=== PATIENT | male | born 1985 | race Caucasian/White ===

== ENCOUNTER 2020-08-30 01:06 | Emergency (ER) | payer BC ==
[~2020-08-30] VITALS: Ht 175.3 cm; Wt 136.1 kg
[2020-08-30 01:10] VITALS: BP_SYST 132
--- NOTE | 2020-08-30 01:10 | NUR ---
Patient to ER bed 3 to gown for evaluation. Side rails up. Report given to KELVIN KENYON.
--- NOTE | 2020-08-30 01:32 | NUR ---
Dr. Ovalles [facility] for pt eval
--- NOTE | 2020-08-30 01:34 | NUR ---
PT BIBA TO ED C/O LEFT SHOULDER PAIN THAT RADIATES DOWN TO THE WRIST GETTING UP AND FEELING DIZZY AND NEAR FAINTING VSS NO S/S OF ACUTE DISTRESS NO OTHER COMPLAINTS NOTED RESTING ON GURNEY RAILS UP
--- NOTE | 2020-08-30 01:42 | NUR ---
Portable X Ray bedside, well tolerated
--- NOTE | 2020-08-30 01:48 | NUR ---
Pt taken to Radiology in stable condition
[2020-08-30] MEDS ORDERED: KETOROLAC TROMETHAMINE 30 MG VIAL IM ONE (02:00)
--- NOTE | 2020-08-30 02:02 | NUR ---
Pt back from Radiology, well tolerated
--- NOTE | 2020-08-30 02:18 | NUR ---
Orthostatics: sitting 133/88, 73 flat 127/74, 71 standing 121/86, 81. Dr. Ovalles aware
--- NOTE | 2020-08-30 02:24 | NUR ---
Dr. Ovalles [facility] for pt follow up
[2020-08-30] MEDS ORDERED: CYCL-10 PO (02:42)
[2020-08-30] MEDS ORDERED: PRED20TA PO (02:42)
[2020-08-30] MEDS ORDERED: ACET1TAB23 PO (02:42)
[2020-08-30 02:55] VITALS: BP_SYST 132
--- NOTE | 2020-08-30 02:55 | NUR ---
Patient given written and verbal discharge instructions and verbalizes understanding. ER MD discussed with patient the results and treatment provided. Patient in stable condition. ID arm band removed. Rx of Flexeril, Tylenol #3, and Prednisone given. Patient educated on pain management and to follow up with PMD. Pain Scale 0/10. Opportunity for questions provided and answered. Medication side effect fact sheet provided.
== END 2020-08-30 02:55 | disposition home or self-care (01) ==
LOC: SED 01:06
DX: M54.12 Radiculopathy, cervical region (principal); Z88.8 Allergy status to other drugs, medicaments and biological substances
CPT/HCPCS: 71045; 72040-TC; 96372; 99284

== ENCOUNTER 2021-05-27 13:00 | Emergency (ER) | payer BC ==
[~2021-05-27] VITALS: Ht 175.3 cm; Wt 131.5 kg
[~2021-05-27 13:00] MED LIST: CYCL10TA24 PO; PRED20TA PO
[2021-05-27 13:08] VITALS: BP_SYST 139
--- NOTE | 2021-05-27 13:08 | NUR ---
Patient to ER bed 3 to gown for evaluation. Side rails up. Assumed care.
--- NOTE | 2021-05-27 13:10 | NUR ---
Pt. came in with concerns of dizzy episodes that have come and gone over the past couple weeks and now for three days has experienced intermittent numbness to left arm and left leg, describes it as "pins and needles," denies pain or ACUÑA.
--- NOTE | 2021-05-27 13:20 | NUR ---
ER at bedside examining patient.
--- NOTE | 2021-05-27 13:28 | NUR ---
Patient transported to radiology via wheelchair, accompanied by staff.
[2021-05-27 13:46] LABS: BASOPHILS % (AUTO) 0.5 % (0.0-2.0); EOSINOPHILS # (AUTO) 0.1 K/uL (0.0-0.4); EOSINOPHILS % (AUTO) 1.6 % (0.0-4.0); HEMATOCRIT 46.9 % (36-54); HEMOGLOBIN 15.8 g/dL (14.0-18.0); LYMPHOCYTES # (AUTO) 1.5 K/uL (1.0-5.5); LYMPHOCYTES % (AUTO) 26.3 % (20.5-51.5); MEAN CORPUSCULAR HEMOGLOBIN 29 pg (27-31); MEAN CORPUSCULAR HGB CONC 34 % (32-36); MEAN CORPUSCULAR VOLUME 86 fL (79.0-98.0); MONOCYTES # (AUTO) 0.4 K/uL (0.0-1.0); MONOCYTES % (AUTO) 7.1 % (1.7-9.3); NEUTROPHILS # (AUTO) 3.8 K/uL (1.8-7.7); NEUTROPHILS % (AUTO) 64.5 % (40.0-70.0); PLATELET COUNT (AUTO) 154 K/uL (130-430); RED BLOOD CELL COUNT(AUTO) 5.47 MIL/uL (4.2-6.2); RED CELL DISTRIBUTION WIDTH 14.2 % (9.0-15.0); WHITE BLOOD COUNT (AUTO) 5.8 K/uL (4.8-10.8)
[2021-05-27 14:22] LABS: ANION GAP 8 (5-15); CALCIUM 8.8 mg/dL (8.4-11.0); CHLORIDE 104 mmol/L (98-107); CREATININE 1.05 mg/dL (0.55-1.30); GLUCOSE 114 mg/dL (70-99); POTASSIUM 3.6 mmol/L (3.5-5.1); SODIUM SERUM 138 mmol/L (136-145); UREA NITROGEN, BLOOD 18 mg/dL (8-21)
[2021-05-27 14:25] LABS: GFR AFRICAN AMERICAN 103 mL/min (>90)
[2021-05-27 14:31] LABS: ALANINE AMINOTRANSFERASE 61 U/L (12-78); ALBUMIN 3.3 g/dL (3.4-4.8); ASPARTATE AMINOTRANSFERASE 36 U/L (10-37); TOTAL BILIRUBIN 0.3 mg/dL (0.0-1.0)
[2021-05-27] MEDS ORDERED: MECLIZINE HCL 25 MG TABLET (ANITVERT) PO ONE (15:45)
[2021-05-27] MEDS ORDERED: MECL-129 PO (16:03)
--- NOTE | 2021-05-27 16:15 | NUR ---
Patient given written and verbal discharge instructions and verbalizes understanding. ER discussed with patient the results and treatment provided. Patient in stable condition. Patient educated on pain management and to follow up with PMD and neurology. Pain Scale 0. Opportunity for questions provided and answered.
[2021-05-27 16:16] VITALS: BP_SYST 141
== END 2021-05-27 16:16 | disposition home or self-care (01) ==
LOC: SED 13:00
DX: R42 Dizziness and giddiness (principal); Z88.2 Allergy status to sulfonamides; Z88.8 Allergy status to other drugs, medicaments and biological substances; Z79.899 Other long term (current) drug therapy
CPT/HCPCS: 36415; 70450; 76376; 80053; 84484; 85025; 93005; 99285; J8597

== ENCOUNTER 2021-10-30 00:53 | Emergency (ER) | payer BC ==
[~2021-10-30] VITALS: Ht 175.3 cm; Wt 128.8 kg
[~2021-10-30 00:53] MED LIST changes: +MECL-129 PO
[2021-10-30 01:08] VITALS: BP_SYST 148
[2021-10-30 03:08] LABS: ANION GAP 7 (5-15); CALCIUM 8.9 mg/dL (8.4-11.0); CHLORIDE 103 mmol/L (98-107); CREATININE 0.93 mg/dL (0.55-1.30); GLUCOSE 127 mg/dL (70-99); POTASSIUM 3.2 mmol/L (3.5-5.1); SODIUM SERUM 138 mmol/L (136-145); UREA NITROGEN, BLOOD 12 mg/dL (8-21)
[2021-10-30 03:09] LABS: BASOPHILS % (AUTO) 0.3 % (0.0-2.0); EOSINOPHILS # (AUTO) 0.1 K/uL (0.0-0.4); EOSINOPHILS % (AUTO) 1.2 % (0.0-4.0); HEMATOCRIT 43.2 % (36-54); HEMOGLOBIN 14.7 g/dL (14.0-18.0); LYMPHOCYTES # (AUTO) 2.1 K/uL (1.0-5.5); LYMPHOCYTES % (AUTO) 45.2 % (20.5-51.5); MEAN CORPUSCULAR HEMOGLOBIN 29 pg (27-31); MEAN CORPUSCULAR HGB CONC 34 % (32-36); MEAN CORPUSCULAR VOLUME 85 fL (79.0-98.0); MONOCYTES # (AUTO) 0.3 K/uL (0.0-1.0); MONOCYTES % (AUTO) 6.7 % (1.7-9.3); NEUTROPHILS # (AUTO) 2.2 K/uL (1.8-7.7); NEUTROPHILS % (AUTO) 46.6 % (40.0-70.0); PLATELET COUNT (AUTO) 162 K/uL (130-430); RED BLOOD CELL COUNT(AUTO) 5.06 MIL/uL (4.2-6.2); RED CELL DISTRIBUTION WIDTH 13.5 % (9.0-15.0); WHITE BLOOD COUNT (AUTO) 4.7 K/uL (4.8-10.8)
[2021-10-30 03:21] LABS: ALANINE AMINOTRANSFERASE 64 U/L (12-78); ALBUMIN 3.7 g/dL (3.4-4.8); ASPARTATE AMINOTRANSFERASE 29 U/L (10-37); PHOSPHORUS 3.4 mg/dL (2.7-4.5); TOTAL BILIRUBIN 0.6 mg/dL (0.0-1.0)
[2021-10-30 03:25] LABS: GFR AFRICAN AMERICAN 118 mL/min (>90)
[2021-10-30] MEDS ORDERED: POTA-197 PO (03:35)
[2021-10-30] MEDS: POTASSIUM CHLORIDE 20 MEQ/PKT PACKET PO ONE (03:39)
[2021-10-30] MEDS ORDERED: POTASSIUM CHLORIDE 20 MEQ/PKT PACKET ONE (03:42)
[2021-10-30 03:48] VITALS: BP_SYST 140
== END 2021-10-30 03:57 | disposition home or self-care (01) ==
LOC: SED 00:53
DX: E87.6 Hypokalemia (principal); R20.2 Paresthesia of skin; F41.9 Anxiety disorder, unspecified; M62.838 Other muscle spasm; I10 Essential (primary) hypertension; R42 Dizziness and giddiness; R53.1 Weakness; Z88.2 Allergy status to sulfonamides; Z79.899 Other long term (current) drug therapy
CPT/HCPCS: 36415; 70450-TC; 76376; 80053; 83735; 84100; 84484; 85025; 93005; 99285